=== PATIENT | female | born 1945 | race Caucasian/White ===

== ENCOUNTER → 2019-12-04 12:05 | Outpatient (CLI) | payer MEDICARE, OTHER, SELFPAY ==
[2019-12-05 06:49] LABS: COVID19 Sendout Not Detected (Not Detect)
== END ==
PROVIDERS: Visit Provider Physician Assistant
DX: Z01.812 Encounter for preprocedural laboratory examination (principal)
CPT/HCPCS: 87635

== ENCOUNTER 2019-12-07 08:08 | Day surgery (SDC) | payer MEDICARE, OTHER, SELFPAY ==
[2019-11-29 08:33] VITALS: BMI 18.0
[2019-12-07] VITALS (13 sets, daily range): BP systolic 91–141; BP diastolic 47–88; PULSE 63–93; RESP 10–19; TEMP 35.8–37; O2SAT 91–100; BMI 18.0
--- NOTE | 2019-12-07 | PATH_ITS ---
[facility] Accession Number: [id number] . 01 Material submitted: . uterus - UTERUS, BILATERAL FALLOPIAN TUBES AND OVARIES . 01 Clinical history: . LAPAROSCOPIC ASSISTED VAG HYSTERECTOMY . 02 Diagnosis: Uterus Bilateral Fallopian Tubes and Ovaries, Hysterectomy and Bilateral Salpingo-oophorectomy: Benign leiomyomas, some with hyalinization and calcification. Fallopian tubes with endosalpingiosis and paratubal cysts. Atrophic endometrium. Negative for atypia, atypical hyperplasia, and malignancy. [facility] 12/12/2019 1612 Local . 02 Electronically signed: . Sravanthi Daniels MD, Pathologist NPI- [id number] . 01 Gross description: . The specimen is received in formalin, labeled uterus, bilateral tubes and ovaries and consists of a 251 grams uterus, cervix, and bilateral attached ovaries and fallopian tubes. The serosa is santoro-pink and smooth with multiple subserosal leiomyomas. The specimen measures 10.5 cm from superior fundus to cervix x 7.0 cm from cornu to cornu x 5.5 cm from anterior to posterior. The santoro-pink, smooth to wrinkled ectocervix measures 4.5 x 3.5 cm, and there is a 1.5 x 0.1 cm slit-like, probe-patent os. The specimen is bivalved to reveal a santoro-pink, focally cystic endocervical mucosa. The endometrial cavity measures 4.0 x 2.0 cm and displays a santoro-pink glistening, focally hemorrhagic endometrium measuring 0.1 cm in thickness. The myometrium is santoro-pink and trabeculated, measuring 1.5 cm in thickness. There are multiple santoro-white whorled submucosal, intramural and subserosal leiomyomas, ranging from 0.2 to 7.0 cm. The largest leiomyoma displays diffusely calcified, possibly necrotic santoro-yellow to santoro-lalen cut surfaces. No additional areas of hemorrhage, necrosis or cystic degeneration are identified. The right and left ovaries average 2.6 x 1.0 x 0.8 cm and displays santoro cerebriform external surfaces. Sectioning reveals a santoro ovarian stroma. The left ovary has multiple serous filled smooth wall cysts ranging from 0.2 to 0.6 cm. The fallopian tubes average 7.0 cm in length x 0.6 cm in diameter and has a santoro to pink-purple smooth serosa. The left fallopian tube has two paratubal cysts measuring 0.1 and 0.2 cm. Sectioning reveals a santoro mucosa and a pinpoint to stellate lumen measuring 0.3 cm in diameter. Business Area Director sections are submitted. . A1- Anterior cervix. A2- Posterior cervix. A3- Anterior uterus, full thickness section. A4 - Posterior uterus, full thickness section. A5 - Business Area Director right ovary. A6 - Business Area Director left ovary. A7 - Business Area Director right fallopian tube, cross-sections and bisected fimbria. A8 - Business Area Director left fallopian tube, cross-sections and bisected fimbria. A9-A15 - Business Area Director leiomyomas (A13-A15 largest calcified leiomyoma, A14-A15 following decalcification). ([id number]) /[facility] 12/12/2019 [facility]2 Local . 02 Pathologist provided ICD-10: D25.9 . 02 CPT . 196055 Performed at: [facility] [address] [place] [address], [place], [place] [id number] MD Miguel Donahue MD Phone: [phone] Performed at: [facility] [id number] MD Sravanthi Daniels MD Phone: [phone]
[2019-12-07] MEDS: ACETAMINOPHEN 325 MG TABLET 975 MG PO (08:35)
[2019-12-07] MEDS: LACTATED RINGERS 1,000 ML 42 ML IV ×2 (08:35→10:14)
--- NOTE | 2019-12-07 08:47 | PM.PREOP ---
Pre-operative Note COVID-19 COVID-19 status: Negative Result date/Date tested (Pos, Neg/Pending): 12/04/19 Interval Note History & Physical reviewed/Exam performed by Physician: Yes Changes to H&P: No H&P completed within 30 days and has changed as indicated here:: 12/04/19
[2019-12-07] MEDS: CEFAZOLIN 2 GM/100 ML FROZ.PIGGY IV (08:54)
--- NOTE | 2019-12-07 09:28 | SUR.OPER ---
Lithotomy on padded OR bed. [employer] Pad Positioner under torso. Head on pillow, arms padded and tucked at sides. Legs secured in padded yellow fins stirrups.
[2019-12-07] MEDS: BUPIVACAINE 0.5% W/ EPI (PF) 30 ML VIAL INJ (09:37)
--- NOTE | 2019-12-07 13:01 | PM.GYNOP.1 ---
Operative Date/Time/Diagnoses Date of procedure: 12/07/19 Time of procedure: 13:01 Pre-op diagnosis: Uterine prolapse Cystocele Rectocele Post-op diagnosis: same Procedure & Clinicians Procedure: Procedures Operation Date: 12/07/19 08:45 Actual Procedures Side Surgeon p Laparoscopic Assisted Vag Hysterectomy w/ Bilateral Salpingo-oophorectomy, sacrospinous ligament fixation Rachelle Valles MD s A&P Repair Rachelle Valles MD Indications: Uterine prolapse Cystocele Rectocele Surgeon: Rachelle Valles Asl Interpreter: Eloisa Albarado Operative Notes Findings: Eleven week size multi fibroid uterus Large 7 cm fibroid originating from the left fundus of the uterus Normal tubes and ovary Normal liver and gallbladder Normal appendix Third-degree uterine prolapse Third-degree rectocele Third-degree cystocele Closure Type: primary Specimen(s): left tube & ovary, right tube & ovary and uterus Applied: catheter (To continuous drainage) Estimated blood loss (mL): 75 Blood products transfused: none Procedure in detail: The patient was taken to the operating room where she was placed in the dorsal supine position. After adequate general endotracheal anesthesia was achieved, she was placed in the dorsal lithotomy position, and prepped and draped in the usual sterile fashion. A bivalve speculum was placed into the vagina, and a single-tooth tenaculum was placed on the anterior lip of the cervix. The cervical os was sequentially dilated until the ZUMI uterine manipulator could pass easily into the endometrial cavity. The single-tooth tenaculum was removed from the anterior lip of the cervix, and the bivalve speculum was removed from the vagina. Attention was then turned to the abdomen where 6 mL of half percent Marcaine with epinephrine were injected in the umbilical fold. A 5 mm incision was made. The Verees needle was placed into the peritoneal cavity, and its placement confirmed by aspiration and drop test. The abdominal cavity was insufflated with 3.5L of CO2. The Verees needle was removed, and a 5 mm trocar was placed without difficulty. Initial inspection of the pelvis revealed the findings noted above. 2 other incisions were made midway between the pubic symphysis and umbilicus 4 cm lateral to the midline. These were 5 mm incisions. Two 5 mm trochars were placed under direct visualization. The right tube and ovary were grasped with an atraumatic grasper. The infundibulopelvic ligament on the right side was cauterized and cut with plasma kinetic. The round ligament and broad ligament were cauterized and cut. This was continued to the level of the uterine arteries. This was repeated on the patient's left side. The instrument were removed from the abdomen. Attention was then turned to the vagina where the ZUMI uterine manipulator was removed from the uterus. The cervix was grasped with a 4 tooth tenaculum. 10 mL of quarter percent Marcaine with epinephrine were injected circumferentially around the cervix. The cervix was circumscribed. The bladder and rectum were dissected off the lower uterine segment and cervix with an open moistened Ray-Hipolito. The peritoneum was entered sharply with the Metzenbaum scissors anteriorly and a Bethalto placed. The peritoneum was entered posteriorly with the Metzenbaum scissors and the long weighted speculum was placed into the posterior cul-de-sac. The uterosacral cardinal ligament complexes were clamped, transected, and suture ligated with 0 Vicryl. These were attached to hemostats. The uterine arteries were clamped, transected, and suture ligated with 0 Vicryl. The uterus was handed off for specimen with the tubes and ovaries. The peritoneum was closed with a pursestring suture with 2-0 Vicryl. The vaginal cuff was closed with 0 Vicryl with a series of simple interrupted sutures. The tagged sutures were cut. 2 Allis clamps were placed at the apex of the cystocele. 6 mL of half percent Marcaine with epinephrine were injected and an incision was made with a #10 blade between the 2 Allis clamps. Wide Allis clamps were placed on the midline of the cystocele approximately 6. The mucosa was undermined using the Metzenbaum scissors and the mucosa incised in the midline moving the wide Allis clamps to the edges of the mucosa. The mucosa was dissected off the underlying fascia using an open moistened Ray-Hipolito and a #10 blade. The fascia was reapproximated with 0 Vicryl with a series of horizontal mattress sutures. The excess vaginal mucosa was excised. The mucosa was closed using simple interrupted sutures with 2-0 Vicryl including the underlying fascia to close the space. The weighted speculum was removed from the vagina. Allis clamps were placed at the mucocutaneous junction at the introitus. 6 mL of quarter percent Marcaine with epinephrine were injected. An incision was made with a #10 blade between the 2 Allis clamps, and a triangular piece of skin and underlying subcutaneous tissue was removed. Seven Allis clamps were placed in the midline of the rectocele. 10 mL of quarter percent Marcaine with epinephrine were injected submucosally. The mucosa was undermined using the Metzenbaum scissors and the mucosa incised in the midline, moving the wide Allis clamps to the mucosal edges. The underlying fascia was dissected off of the mucosa using an open moistened Ray-Hipolito and a #10 blade. The fascia was reapproximated using 0 Vicryl with a series of horizontal mattress sutures. The excess vaginal mucosa was excised. The mucosa was closed using a series of simple interrupted sutures with 2-0 Vicryl including the underlying fascia to close the space. After 3 sutures were placed, using the Capio needle, a suture of 2-0 prolene was placed into the sacrospinus ligament after the adventitia and rectum were bluntly dissected away. The same suture was then placed at the apex of the rectocele. The suture was then tied down. The remainder of the mucosa was closed with simple interrupted sutures. The On the perineum 0 Vicryl was used to reapproximate the levator muscle. The subcutaneous layer was closed with 2-0 Vicryl. The skin was closed with 3-0 chromic in a subcuticular fashion. Hemostasis was achieved. A betadine moistened vaginal pack was placed into the vagina. A rectal exam was done and there were no sutures palpable in the rectum. The urine was clear. Attention was turned back up to the abdomen. The abdomen was reinflated with 3.2 L of CO2. The pelvis was examined and there was no bleeding noted. The instruments were removed from the abdomen. The CO2 was allowed to escape. The trocars were removed. The incisions were repaired with 4-0 Biosyn in a subcuticular fashion. Steri-Strips, 2 x 2, and op site were placed. Sponge, lap, and instrument counts were correct x2. The patient tolerated the procedure well, was taken to PACU in stable condition. Complications: none Post-operative Condition: stable Disposition: PACU Plan for aftercare: To acute care after recovery
[2019-12-07] MEDS: LACTATED RINGERS 1,000 ML 100 ML IV (13:20)
--- NOTE | 2019-12-07 13:45 | PC.NURSE ---
Patient admitted to the floor at 1158. She has a ofelia pad in place with minimal red blood. She also has 3 small lap sites which are all cdi. IVF infusing LR at 100cc/hr. Patient denies pain at this time. Skin assessment done with starla RN. Packing inserted into vagina in surgery. will be by either this afternoon or in the morning to take packing out. Patient is not nauseous or having any discomfort now.
[2019-12-07] MEDS: KETOROLAC 30 MG/ML VIAL IV ×2 (18:05→23:44)
[2019-12-07] MEDS: DOCUSATE 250 MG CAPSULE PO (20:58)
[2019-12-08 05:07] VITALS: BP 92/59; PULSE 70; RESP 18; TEMP 36.3; O2SAT 97
[2019-12-08 06:04] LABS: Add Manual Diff / Slide Review NO; Basophils Absolute Auto 0 /uL (0-100); Basophils Percent Auto 0.1 % (0-2); Eosinophils Absolute Auto 0 /uL (0-450); Hematocrit 33.1 % (36-46); Hemoglobin 10.9 g/dL (12.0-16.0); Lymphocytes Absolute Auto 1400 /uL (1100-4500); Lymphocytes Percent Auto 9.5 % (25-40); Mean Corpuscular Hemoglobin 30.7 PG (26-34); Mean Corpuscular Volume 92.9 fL (80-100); Monocytes Absolute Auto 1300 /uL (0-900); Monocytes Percent Auto 9.1 % (3-14); Neutrophils Absolute Auto 11600 /uL (1500-7000); Neutrophils Percent Auto 81.3 % (50-75); Platelet Count 222 X10^3/uL (150-400); Red Blood Cell Count 3.56 X10^6/uL (4.0-5.2); Red Cell Distribution Width 14.3 % (11.6-14.8); White Blood Cell Count 14.3 X10^3/uL (4.5-11.0)
[2019-12-08] MEDS: LEVOTHYROXINE 88 MCG TABLET PO (06:16)
[2019-12-08] MEDS: KETOROLAC 30 MG/ML VIAL IV (06:16)
--- NOTE | 2019-12-08 06:46 | PC.NURSE ---
NOC Note: Nunes removed at 0615 and pt tolerated it well, pt reporting mild discomfort and pressure during the night. Packing removed after nunes, packing was 85-90% saturated, pt reports improvement in discomfort after packing removed. BP's low at 91/48 @ 2350 and 92/59 @ 0507, IVF running at this time and encouraging po intake. Pt has not been out of bed yet.
[2019-12-08] MEDS: LACTATED RINGERS 1,000 ML 100 ML IV (08:06)
[2019-12-08 08:55] VITALS: BP 115/66; PULSE 75; RESP 16; TEMP 37; O2SAT 98
[2019-12-08] MEDS: DOCUSATE 250 MG CAPSULE PO (10:22)
--- NOTE | 2019-12-08 11:45 | PC.NURSE ---
Addendum entered by Karey Pino R.N. 12/08/19 12:41: @ 1240 pt voided to toilet X1 and d/c via wheelchair to private vehicle Original Note: Voided 650 mL, Post-void residual 182 mL; ls clear; pt instructed to cough/deep breath Q1 hr, and to void Q3 hours for 3 days, including one time at night; pt also encouraged to continue taking NSAID Q 6 hours, as well as stool softener; daughter in room for d/c instructions
--- NOTE | 2019-12-08 15:50 | CM.IDA ---
Initial DCP Assessment Note Pt is a 74 yo female, resident of [place], now POD#1 from lap hysterectomy, BSO, ligament fixation and A+P repair w/ Dr Valles PCP: Kathie Frankel Payer: [facility] Reviewed chart, met w/patient and her dtr at bedside, introduced role. Patient very pleasant, eager to return home. Patient denies needs from this MANAGER OF OPERATIONS, plans to get OTC meds from local drug store or pharmacy before heading to [facility], priority board pass in hand at time of visit. P: DC home w/family, dtr staying until Wednesday to assist as needed Sravanthi Chacon, MANAGER OF OPERATIONS
== END 2019-12-08 12:41 | disposition home or self-care (01) ==
LOC: OR 08:10 → AC 08:10
PROVIDERS: PCP Naturopath; Referring Provider Naturopath; Visit Provider Obstetrics & Gynecology
PROC: 0UT9FZZ Resection of Uterus, Via Natural or Artificial Opening With Percutaneous Endoscopic Assistance (ICD-10-PCS; CPT 58554; principal; 2019-12-07 08:45)
PROC: (CPT 58554; 2019-12-07 08:45)
DX: N81.3 Complete uterovaginal prolapse (principal); N94.89 Other specified conditions associated with female genital organs and menstrual cycle; N83.8 Other noninflammatory disorders of ovary, fallopian tube and broad ligament; D25.2 Subserosal leiomyoma of uterus; D25.1 Intramural leiomyoma of uterus; D25.0 Submucous leiomyoma of uterus; E03.9 Hypothyroidism, unspecified
CPT/HCPCS: 58554; 57260; 57282; 36415; 85025; J0330; J0690; J1100; J1885; J2405; J2704; J3010

== ENCOUNTER → 2021-04-02 11:58 | Outpatient (CLI) | payer MEDICARE, OTHER, SELFPAY ==
[2019-12-07 13:14] VITALS: BMI 18.0
--- NOTE | 2021-04-02 | DI.MG.S_ITS ---
BILATERAL DIGITAL SCREENING MAMMOGRAM 3D/2D WITH CAD: 04/02/2021 CLINICAL: Routine screening. Comparison is made to exam dated: 01/27/2018 mammogram - [facility]. There are scattered fibroglandular elements in both breasts. Current study was also evaluated with a Computer Aided Detection (CAD) system. No significant masses, calcifications, or other findings are seen in either breast. There has been no significant interval change. IMPRESSION: NEGATIVE There is no mammographic evidence of malignancy. A 1 year screening mammogram is recommended. This exam was interpreted at Station ID: [id number]. NOTE: For mammograms, a report in lay terms will be sent to the patient. Approximately 15% of breast malignancies will not be visualized mammographically. In the management of a palpable breast mass, a negative mammogram must not discourage biopsy of a clinically suspicious lesion. Electronically Signed By: Nat [email or web address]/[email or web address]:04/02/2021 13:56:20 letter sent: Normal Exam ACR BI-RADS Category 1: Negative [id number]
== END ==
PROVIDERS: PCP Naturopath; Referring Provider Naturopath; Visit Provider Naturopath
DX: Z12.31 Encounter for screening mammogram for malignant neoplasm of breast (principal)
CPT/HCPCS: 77063; 77067

== ENCOUNTER → 2022-04-07 10:56 | Outpatient (CLI) | payer MEDICARE, OTHER, SELFPAY ==
[2019-12-07 13:14] VITALS: BMI 18.0
--- NOTE | 2022-04-07 10:59 | DI.MG.S_ITS ---
BILATERAL DIGITAL SCREENING MAMMOGRAM 3D/2D WITH CAD: 04/07/2022 CLINICAL: Routine screening. Comparison is made to exams dated: 04/02/2021 mammogram - [facility], 02/07/2020 mammogram, and 01/27/2019 mammogram - [facility]. There are scattered areas of fibroglandular density in both breasts (category b / 25%-50% glandular tissue). Current study was also evaluated with a Computer Aided Detection (CAD) system. No significant masses, calcifications, or other findings are seen in either breast. There has been no significant interval change. IMPRESSION: NEGATIVE There is no mammographic evidence of malignancy. A 1 year screening mammogram is recommended. Based on the Tyrer Cuzick model (a risk assessment model) the patient's lifetime risk is 3.2% and her 10 year risk is 3.2%. According to the ACR, ACS, and NCCN guidelines, an annual breast MRI exam along with mammogram is recommended if the patient's lifetime risk is 20% or greater. This exam was interpreted at Station ID: [id number]. NOTE: For mammograms, a report in lay terms will be sent to the patient. Approximately 15% of breast malignancies will not be visualized mammographically. In the management of a palpable breast mass, a negative mammogram must not discourage biopsy of a clinically suspicious lesion. Electronically Signed By: Rena ramos/[email or web address]:04/07/2022 12:27:32 letter sent: Normal Exam ACR BI-RADS Category 1: Negative [id number]
== END ==
PROVIDERS: PCP Naturopath; Referring Provider Naturopath; Visit Provider Naturopath
DX: Z12.31 Encounter for screening mammogram for malignant neoplasm of breast (principal)
CPT/HCPCS: 77063; 77067

== ENCOUNTER → 2023-04-20 12:37 | Outpatient (CLI) | payer MEDICARE, OTHER, SELFPAY ==
[2019-12-07 13:14] VITALS: BMI 18.0
--- NOTE | 2023-04-20 12:39 | DI.MG.S_ITS ---
BILATERAL DIGITAL SCREENING MAMMOGRAM 3D/2D WITH CAD: 04/20/2023 CLINICAL: Routine screening. Comparison is made to exams dated: 04/07/2022 mammogram, 04/02/2021 mammogram - [facility], and 02/07/2020 mammogram - [facility]. There are scattered areas of fibroglandular density in both breasts (category b / 25%-50% glandular tissue). Current study was also evaluated with a Computer Aided Detection (CAD) system. No significant masses, calcifications, or other findings are seen in either breast. There has been no significant interval change. IMPRESSION: NEGATIVE There is no mammographic evidence of malignancy. A 1 year screening mammogram is recommended. Based on the Tyrer Cuzick model (a risk assessment model) the patient's lifetime risk is 3.0% and her 10 year risk is 0.0%. According to the ACR, ACS, and NCCN guidelines, an annual breast MRI exam along with mammogram is recommended if the patient's lifetime risk is 20% or greater. This exam was interpreted at Station ID: [id number]. NOTE: For mammograms, a report in lay terms will be sent to the patient. Approximately 15% of breast malignancies will not be visualized mammographically. In the management of a palpable breast mass, a negative mammogram must not discourage biopsy of a clinically suspicious lesion. Electronically Signed By: Shante Avila M.D., PH.D eb/[email or web address]:04/20/2023 14:40:36 letter sent: Normal Exam ACR BI-RADS Category 1: Negative [id number]
== END ==
PROVIDERS: PCP Naturopath; Referring Provider Naturopath; Visit Provider Naturopath
DX: Z12.31 Encounter for screening mammogram for malignant neoplasm of breast (principal); R92.323 Mammographic fibroglandular density, bilateral breasts
CPT/HCPCS: 77063; 77067

== ENCOUNTER → 2024-05-09 10:58 | Outpatient (CLI) | payer MEDICARE, OTHER, SELFPAY ==
[2019-12-07 13:14] VITALS: BMI 18.0
--- NOTE | 2024-05-09 10:59 | DI.MG.S_ITS ---
MM screening mammo BI: 05/09/2024. BI-RADS: 1 CLINICAL: 79-year old female for bilateral screening mammogram. Tyrer-Cuzick lifetime risk of 1.3%. No personal or first-degree family history of breast cancer. PRIOR EXAMS 04/20/2023, 04/07/2022, 04/02/2021, 02/07/2020, 01/27/2019, 01/27/2018. MAMMOGRAPHY TECHNIQUE: 2D and 3D (tomosynthesis) digital mammographic views obtained, with additional images as needed for full coverage. Current study was also evaluated with a Computer Aided Detection (CAD) system. DENSITY B. There are scattered areas of fibroglandular density. MAMMOGRAPHY FINDINGS Bilateral: No suspicious mass, asymmetry, microcalcification, or other abnormality seen. IMPRESSION: * No evidence of malignancy. RECOMMENDATIONS Bilateral * Annual screening mammography. OVERALL ASSESSMENT CATEGORY BI-RADS-1: Negative. The [employer] recommends annual screening mammography beginning at age 40 for women with average risk of breast cancer. ELECTRONICALLY SIGNED: Brittni Pillai M.D. on 05/09/2024 at 02:41:13 PM PT Interpreting Station ID: [id number]
== END ==
PROVIDERS: PCP Naturopath; Referring Provider Naturopath; Visit Provider Naturopath
DX: Z12.31 Encounter for screening mammogram for malignant neoplasm of breast (principal)
CPT/HCPCS: 77063; 77067